=== PATIENT | female | born 1995 | race Caucasian/White ===

== ENCOUNTER 2022-12-14 14:10 | Emergency (ER) | payer OTHER, SELFPAY ==
[2022-12-14 14:15] VITALS: BP 169/113; PULSE 98; RESP 20; TEMP 36.8; O2SAT 96; BMI 68.6
--- NOTE | 2022-12-14 14:50 | ED.SKABFB1 ---
HPI - Skin/Abscess/Foreign Bdy General Chief complaint: Skin/Abscess/Foreign Body Stated complaint: LOWER EXTREMITY SWELLING TO RIGHT LEG Time Seen by Provider: 12/14/22 14:13 Source: patient Mode of arrival: walk-in Limitations: no limitations History of Present Illness HPI narrative: red spots on the right lower leg that began several days ago and did not go away on their own. She is concerned about possible infection. No systemic symptoms such as fever or vomiting. No calf or popliteal pain. No groing pain. Mild swelling and redness to the right lower leg. Related Data Previous Rx's Medication Instructions Recorded cephalexin 500 mg capsule 500 mg PO QID 7 days #28 caps 12/14/22 sulfamethoxazole 800 1 tab PO DAILY 7 days #7 tabs 12/14/22 mg-trimethoprim 160 mg tablet (Bactrim DS) Allergies Allergy/AdvReac Type Severity Reaction Status Date / Time No Known Drug Allergies Allergy Verified 12/14/22 14:19 PFSH PFSH Social History Smoking status: Heavy tobacco smoker Exam Narrative Exam Narrative: Nurses notes and vital signs reviewed and patient is not hypoxic. General: Well-appearing and in no apparent distress. Skin: Warm, dry, no pallor noted. folliculitis noted to the right lower leg with numerous pimple-like lesions - no blisters or bulla. No purulent discharge. No diffuse erythema noted. Eye: Pupils are equal, round and EOMI. No scleral icterus. Ears, Nose, Mouth, and Throat: Oral mucosa is moist Cardiovascular: Regular Rate and Rhythm without murmur, gallop or rub. Respiratory: No accessory muscle use or respiratory distress. Lungs are clear to auscultation, no wheezing, rales or rhonchi Musculoskeletal: normal ROM, no calf or popliteal tenderness, minimal right lower leg edema/swelling. right lower leg skin is described above Neurological: A&O x4. No cranial nerve dysfunction observed. No truncal ataxia. Moves all extremities. Sensation intact. Psychiatric: Cooperative and interactive. Normal mood and affect. Constitutional Vital Signs, click to edit/add: Last Vital Signs Temp 98.3 F 12/14/22 14:15 Pulse 98 H 12/14/22 14:15 Resp 20 12/14/22 14:15 BP 169/113 H 12/14/22 14:15 Pulse Ox 96 12/14/22 14:15 O2 Del Method Room Air 12/14/22 14:15 Course Vital Signs Vital signs: Vital Signs Temperature 98.3 F 12/14/22 14:15 Pulse Rate 98 H 12/14/22 14:15 Respiratory Rate 20 12/14/22 14:15 Blood Pressure 169/113 H 12/14/22 14:15 Pulse Oximetry 96 12/14/22 14:15 Oxygen Delivery Method Room Air 12/14/22 14:15 Temperature 98.3 F 12/14/22 14:15 Pulse Rate 98 H 12/14/22 14:15 Respiratory Rate 20 12/14/22 14:15 Blood Pressure 169/113 H 12/14/22 14:15 Pulse Oximetry 96 12/14/22 14:15 Oxygen Delivery Method Room Air 12/14/22 14:15 MDM - Skin/Abscess/Foreign Bdy MDM Narrative Medical decision making narrative: the patient has folliculitis. Because it is covering a significant area I placed the patient on antibiotics - Bactrim and Keflex. She'll see her primary care physician for follow-up. Discharge Plan Discharge Chief Complaint: Skin/Abscess/Foreign Body Clinical Impression: Folliculitis Patient Disposition: Home, Self-Care Time of Disposition Decision: 14:48 Prescriptions / Home Meds: New sulfamethoxazole-trimethoprim [Bactrim DS] 800-160 mg tablet 1 tab PO DAILY 7 Days Qty: 7 0RF cephalexin 500 mg capsule 500 mg PO QID 7 Days Qty: 28 0RF Instructions: Folliculitis (ED) Stand Alone Forms: Portal Instructions Referrals: Physician,Non-Staff, MD [Primary Care Provider] - 1 week
== END 2022-12-14 14:56 | disposition home or self-care (01) ==
PROVIDERS: Emergency Provider Emergency Medicine
DX: L73.9 Follicular disorder, unspecified (principal); F17.210 Nicotine dependence, cigarettes, uncomplicated
CPT/HCPCS: 99283

== ENCOUNTER 2024-09-19 17:49 | Emergency (ER) | payer OTHER, SELFPAY ==
[2024-09-19 17:55] VITALS: BP 141/103; PULSE 100; TEMP 37.2; O2SAT 90; BMI 60.1
--- NOTE | 2024-09-19 18:01 | CT_ITS ---
The [address] [address] Patient Name: FREYA FAIRCHILD MRN: [id number] date: 1995 Sex: F Assigned Patient Location: ER Current Patient Location: ER Accession/Order Number: [id number] Exam Date: 09/19/2024 19:22 Report Date: 09/19/2024 19:32 At the request of: MAXI ALEGRIA Procedure: CT abdomen pelvis wo con CT Abdomen and Pelvis withoutcontrast TECHNIQUE: Axial imaging with 2-D reconstruction. . The CT exam was performed using one or more the following dose reduction techniques: Automated exposure control, adjustment of the MA and/or Kv according to patient size, or use of the iterative reconstruction technique. COMPARISON: None History: Right flank pain for 5 days LIMITATIONS: None LOWER THORAX Unremarkable LIVER: Hepatic steatosis GALLBLADDER: No gallbladder abnormality identified. BILE DUCTS: No dilatation SPLEEN: Mild splenomegaly PANCREAS: Unremarkable ADRENAL GLANDS: Unremarkable KIDNEYS:No nephrolithiasis. No hydronephrosis. Edematous changes of the right kidney with mild perinephric stranding. AORTA: No abdominal aortic aneurysm identified. RETROPERITONEUM: No significant retroperitoneal abnormalities identified. MESENTERY:Unremarkable STOMACH:Unremarkable SMALL BOWEL: The small bowel loops are nondistended. APPENDIX: The appendix is normal. COLON: Unremarkable URINARY BLADDER: Urinary bladder is unremarkable. REPRODUCTIVE SYSTEM: Reproductive structures are unremarkable. PNEUMOPERITONEUM: None PERITONEAL FLUID:None BONY STRUCTURES: Extensive chronic dysplastic changes of the hips. Extensive L1 to spondylosis. ABDOMINAL WALL: Unremarkable CT/CT abdomen pelvis wo con IMPRESSION: Edematous changes of the right kidney with perinephric stranding. No hydronephrosis or nephrolithiasis. Correlate clinically for pyelonephritis. Venoocclusive changes may also have similar appearance. This can be further assessed with contrasted CT examination. Impression dictated by: Prem Baker M.D. 09/19/2024 7:32 PM Dictation Location: [place] [address] Electronically authenticated by: [id number] Y Date: 09/19/2024 19:32
[2024-09-19 18:13] LABS: Glucose Urine UA NEGATIVE (NEGATIVE)
--- NOTE | 2024-09-19 18:14 | ED.GENADUL1 ---
HPI HPI - General Adult General Chief complaint: Nausea/Vomiting/Diarrhea Stated complaint: LOWER BACK PAIN, NAUSEA Time Seen by Provider: 09/19/24 17:52 Source: patient Mode of arrival: walk-in Limitations: no limitations History of Present Illness HPI narrative: 29-year-old morbidly obese female presents with a chief complaint of right flank pain nausea vomiting. She states she has had increased right flank nausea vomiting over the last several days. Denies known history of . Denies known history of kidney stones. She states she has been vomiting but unable to keep any fluids down due to being nauseous. Patient denies fevers or has had chills. She is afebrile here. Denies any vaginal bleeding or discharge. Related Data Previous Rx's �Medication �Instructions �Recorded cephalexin 500 mg capsule 500 mg PO BID 10 days #20 caps 09/19/24 ondansetron HCl 4 mg tablet 4 mg PO Q8H PRN nausea and 09/19/24 vomiting 3 days #10 tabs Allergies Allergy/AdvReac Type Severity Reaction Status Date / Time No Known Drug Allergies Allergy Verified 09/19/24 18:00 Review of Systems ROS Status of ROS 10 or more systems reviewed and unremarkable except as noted in history and below PFSH PFSH Social History Smoking status: Heavy tobacco smoker Little interest or pleasure in doing things: not at all Feeling down, depressed, or hopeless: not at all Exam Narrative Exam Narrative: All Systems are negative except as noted/marked.All systems reviewed and otherwise negative Nurses note and vital signs reviewed and patient is not hypoxic. General: The patient appears dehydrated, nauseous. patient is resting on cart. Skin: Warm, dry, no pallor noted. There is no rash noted. Head: Normocephalic, atraumatic Eye: Normal conjunctiva, no drainage, EOMI. PERRL Ears, Nose, Mouth, and Throat: oral mucosa is moist. Nares patent. Mouth without vesicles. Ear canals patent. Tm's without Erythema Cardiovascular: Regular Rate and Rhythm Respiratory: Patient is in no distress, no accessory muscle use, lungs are clear to auscultation, no wheezing, rales or rhonchi Back: non-tender, no CVA tenderness bilaterally to percussion. GI: Normal bowel sounds, no tenderness to palpation, no masses appreciated. No rebound, guarding, or rigidity noted. Musculoskeletal: The patient has no evidence of calf tenderness, no pitting edema, symmetrical pulses noted bilaterally Neurological: A&O x4, normal speech Psychiatric: Cooperative Constitutional Vital Signs, click to edit/add: Last Vital Signs Temp 99 F 09/19/24 17:55 Pulse 100 H 09/19/24 17:55 Resp 18 09/19/24 17:55 BP 100/63 09/19/24 19:50 Pulse Ox 90 L 09/19/24 17:55 O2 Del Method Room Air 09/19/24 17:55 Course Vital Signs Vital signs: Vital Signs Temperature 99 F 09/19/24 17:55 Pulse Rate 100 H 09/19/24 17:55 Respiratory Rate 18 09/19/24 17:55 Blood Pressure 141/103 H 09/19/24 17:55 Pulse Oximetry 90 L 09/19/24 17:55 Oxygen Delivery Method Room Air 09/19/24 17:55 Temperature 99 F 09/19/24 17:55 Pulse Rate 100 H 09/19/24 17:55 Respiratory Rate 18 09/19/24 17:55 Blood Pressure 100/63 09/19/24 19:50 Pulse Oximetry 90 L 09/19/24 17:55 Oxygen Delivery Method Room Air 09/19/24 17:55 Medical Decision Making [facility] Narrative Medical decision making narrative: 29-year-old morbidly obese female presents with a chief complaint of right flank pain nausea vomiting. She states she has had increased right flank nausea vomiting over the last several days. Denies known history of . Denies known history of kidney stones. She states she has been vomiting but unable to keep any fluids down due to being nauseous. Patient denies fevers or has had chills. She is afebrile here. Denies any vaginal bleeding or discharge. Upon arrival to the emergency room, IV was established and urine was collected. CBC CMP were obtained. Patient was medicated with IV fluids Zofran and Toradol once urinalysis was back patient was given IV Rocephin for positive nitrates in her urine. She is not currently per her urine testing. She was medicated with Toradol stated did help with her flank pain. CT scan was obtained to rule out nephrolithiasis. No stones were noted but CAT scan was significant for pyelonephritis. After fluids, Rocephin Zofran and Toradol patient does feel much better. She will be discharged home with flex and Zofran. Encouraged to follow-up with her primary care physician. Patient agree with care. Reasons to return to the emergency room including difficulty urinating or high fevers greater than 102 �F unable to be treated with Tylenol / Motrin to return to the emergency room. Patient aware of results agreed with plan of care. GC chlamydia urinalysis was also sent off patient is not suspected of sexually transmitted infection. Patient be notified if cultures did come back and positive Differential Diagnosis Differential Diagnosis: uti, kidney stone, pyelonephritis Medical Records Medical records reviewed: Yes I reviewed the patient's medical records Lab Data Lab results reviewed: Yes I reviewed the patient's lab results Labs: Lab Results 09/19/24 09/19/24 Range/Units 18:05 18:12 WBC 9.5 (4.0-11.0) 10^3/uL RBC 4.43 (4.20-5.40) 10^6/uL Hgb 15.2 (12.0-16.0) g/dL Hct 42.5 (36.0-48.0) % MCV 95.9 (81.0-99.0) fL MCH 34.3 H (26.7-34.0) pg MCHC 35.8 H (29.9-35.2) g/dL RDW 13.3 (11.0-15.0) % Plt Count 248 (150-450) 10^3/uL MPV 9.3 L (9.5-13.5) fL Neut % (Auto) 69.3 (43.0-75.0) % Lymph % (Auto) 14.1 L (20.5-60.0) % Cocke % (Auto) 15.0 H (1.7-12.0) % Eos % (Auto) 0.3 L (0.9-7.0) % Baso % (Auto) 0.7 (0.2-2.0) % Neut # (Auto) 6.6 H (1.4-6.5) 10^3/uL Lymph # (Auto) 1.3 (1.2-3.8) 10^3/uL Cocke # (Auto) 1.4 H (0.3-0.8) 10^3/uL Eos # (Auto) 0.0 (0.0-0.7) 10^3/uL Baso # (Auto) 0.1 (0.0-0.1) 10^3/uL Abs Immat Gran (auto) 0.06 H (0.00-0.03) 10^3/uL Imm/Tot Granulo (auto) 0.6 H (0.0-0.5) % Sodium 138 (136-145) mmol/L Potassium 3.4 L (3.5-5.1) mmol/L Chloride 99 (98-107) mmol/L Carbon Dioxide 27.5 (21.0-32.0) mmol/L Anion Gap 14.9 BUN 11.0 (7.0-18.0) mg/dL Creatinine 0.80 (0.55-1.02) mg/dL Est GFR ( Amer) >60 (>=60 mL/min/1.73m^2) Est GFR (Non-Af Amer) >60 (>=60 mL/min/1.73m^2) BUN/Creatinine Ratio 13.8 Glucose 139 H (74-106) mg/dL Calcium 9.1 (8.5-10.1) mg/dL Total Bilirubin 0.7 (0.2-1.0) mg/dL AST 64 H (15-37) U/L ALT 60 H (14-59) U/L Alkaline Phosphatase 73 (46-116) U/L Total Protein 7.5 (6.4-8.2) g/dL Albumin 2.4 L (3.4-5.0) g/dL Globulin 5.1 g/dL Albumin/Globulin Ratio 0.5 Urine Color Yellow (YELLOW) Urine Clarity Clear (CLEAR) Urine pH 6.0 (5.0-9.0) Ur Specific Diamond 1.015 (1.005-1.025) Urine Protein 100 A (NEG/TRACE) mg/dL Urine Glucose (UA) Negative (NEGATIVE) mg/dL Urine Ketones 40 A (NEGATIVE) mg/dL Urine Occult Blood Small A (NEGATIVE) Urine Nitrite Positive A (NEGATIVE) Urine Bilirubin Small A (NEGATIVE) Urine Urobilinogen 4.0 A (0.2-1.0) EU/dL Ur Leukocyte Esterase Trace A (NEGATIVE) Urine RBC 2-5 A (0-2) #/HPF Urine WBC 2-5 A (NONE SEEN) #/HPF Ur Squamous Epith Cells Many A (NONE/RARE) #/LPF Urine Crystals None seen (None Seen) #/HPF Urine Bacteria Moderate A (NONE SEEN) #/HPF Urine Casts None seen (NONE SEEN) #/LPF Urine Mucus None seen (NONE SEEN) Ur Culture Indicated? Yes-[facility] [place] Urine HCG, Qual Negative (NEGATIVE) Imaging Data CT scan - abdomen: Radiologist's impression: ITS Impressions Abdomen/Pelvis CT 09/19/24 18:01 IMPRESSION: Edematous changes of the right kidney with perinephric stranding. No hydronephrosis or nephrolithiasis. Correlate clinically for pyelonephritis. Venoocclusive changes may also have similar appearance. This can be further assessed with contrasted CT examination. Impression dictated by: Prem Baker M.D. 09/19/2024 7:32 PM Dictation Location: [place] Electronically authenticated by: [id number] Y Date: 09/19/2024 19:32 Discharge Plan Discharge Chief Complaint: Nausea/Vomiting/Diarrhea Clinical Impression: Pyelonephritis Patient Disposition: Home, Self-Care Time of Disposition Decision: 19:36 Condition: Good Prescriptions / Home Meds: New ondansetron HCl 4 mg tablet 4 mg PO Q8H PRN (Reason: nausea and vomiting) 3 Days Qty: 10 0RF cephalexin 500 mg capsule 500 mg PO BID 10 Days Qty: 20 0RF Print Language: Norwegian Instructions: Kidney Infection (ED) Referrals: Physician,Non-Staff, MD [Primary Care Provider] - 1 week Discharge Date/Time: 09/19/24 19:55
[2024-09-19 18:15] LABS: HCG Qualitative Urine* NEGATIVE (NEGATIVE)
[2024-09-19 18:19] LABS: Cast Seen? NONE SEEN #/LPF (NONE SEEN); Crystals Seen? None Seen #/HPF (None Seen)
[2024-09-19 18:20] LABS: Urine Culture Indicated YES-FRMC
[2024-09-19 18:33] LABS: Hematocrit 42.5 % (36.0-48.0); Hemoglobin 15.2 g/dL (12.0-16.0); Immature Granulocytes Abs Auto 0.06 10^3/uL (0.00-0.03); Immature Granulocytes Pct Auto 0.6 % (0.0-0.5); Lymphocytes Absolute Auto 1.3 10^3/uL (1.2-3.8); Mean Corpuscular HGB Conc 35.8 g/dL (29.9-35.2); Mean Corpuscular Hemoglobin 34.3 pg (26.7-34.0); Mean Corpuscular Volume 95.9 fL (81.0-99.0); Platelet Count 248 10^3/uL (150-450); Red Blood Count 4.43 10^6/uL (4.20-5.40); White Blood Count 9.5 10^3/uL (4.0-11.0)
[2024-09-19] MEDS: KETOROLAC TROMETHAMINE 30 MG/ML VIAL IVP (18:35)
[2024-09-19] MEDS: LORAZEPAM 1 MG TABLET PO (18:35)
[2024-09-19 18:47] LABS: Alanine Aminotransferase 60 U/L (14-59); Albumin Globulin Ratio 0.5; Albumin Level 2.4 g/dL (3.4-5.0); Alkaline Phosphatase 73 U/L (46-116); Anion Gap 14.9; Aspartate Amino Transferase 64 U/L (15-37); Blood Urea Nitrogen 11.0 mg/dL (7.0-18.0); Calcium 9.1 mg/dL (8.5-10.1); Carbon Dioxide 27.5 mmol/L (21.0-32.0); Chloride 99 mmol/L (98-107); Estimated GFR (African America >60 (>=60 mL/min/1.73m^2); Estimated GFR (Non-African Ame >60 (>=60 mL/min/1.73m^2); Globulin 5.1 g/dL; Glucose 139 mg/dL (74-106); Potassium 3.4 mmol/L (3.5-5.1); Sodium 138 mmol/L (136-145); Total Protein 7.5 g/dL (6.4-8.2)
[2024-09-19 19:50] VITALS: BP 100/63
[2024-09-22 06:08] LABS: Neisseria gonorrhoeae, NAA Negative (Negative)
== END 2024-09-19 19:55 | disposition home or self-care (01) ==
PROVIDERS: Physician Assistant; Emergency Provider Student in an Organized Health Care Education/Training Program
DX: N12 Tubulo-interstitial nephritis, not specified as acute or chronic (principal); E66.01 Morbid (severe) obesity due to excess calories; Z68.44 Body mass index [BMI] 60.0-69.9, adult; F17.200 Nicotine dependence, unspecified, uncomplicated
CPT/HCPCS: 36415; 74176; 80053; 81001; 84703; 85025; 87086; 87088; 87186; 87491; 87591; 96365; 96375; 99285; J0696; J1885; J2405